=== PATIENT | female | born 1995 | race Caucasian/White ===

== ENCOUNTER 2021-07-03 19:26 | Emergency (ER) | payer OTHER ==
[~2021-07-03] VITALS: Ht 167.6 cm; Wt 46.7 kg
== END 2021-07-04 00:06 | disposition home or self-care (01) ==
LOC: ER 19:26
DX: U07.1 COVID-19 (principal)

== ENCOUNTER 2021-09-09 11:17 | Emergency (ER) | payer OTHER ==
[~2021-09-09] VITALS: Ht 167.6 cm; Wt 49.9 kg
[2021-09-09] MEDS ORDERED: CLONAZEPAM0.5 MG PO (11:30)
[2021-09-09] MEDS ORDERED: OSEL75CA PO (14:39)
== END 2021-09-09 14:44 | disposition home or self-care (01) ==
LOC: ER 11:17
DX: J10.1 Influenza due to other identified influenza virus with other respiratory manifestations (principal); Z20.822 Contact with and (suspected) exposure to COVID-19

== ENCOUNTER 2021-12-31 13:39 | Emergency (ER) | payer OTHER ==
[~2021-12-31] VITALS: Ht 167.6 cm; Wt 51.3 kg
[~2021-12-31 13:39] MED LIST: AMOX-CLAV 875-1 EACH PO; CLONAZEPAM0.5 MG PO; DICLOFENAC POTA50 MG PO; OSEL75CA PO
[2021-12-31] MEDS ORDERED: ONDANSETRON ODT8 MG PO (17:46)
== END 2021-12-31 17:53 | disposition home or self-care (01) ==
LOC: ER 13:39
DX: O21.0 Mild hyperemesis gravidarum (principal); Z3A.00 Weeks of gestation of pregnancy not specified

== ENCOUNTER 2024-04-23 17:57 | Emergency (ER) | payer OTHER ==
[~2024-04-23] VITALS: Ht 167.6 cm; Wt 52.2 kg
[~2024-04-23 17:57] MED LIST changes: +ONDANSETRON ODT8 MG PO
[2024-04-23] MEDS ORDERED: KETOROLAC TROMETHAMINE 30 MG VIAL IU ONE (19:15)
[2024-04-23] MEDS ORDERED: FAMOtidine 10 MG/ML (4ML VIAL) IV PUSH ONE (19:15)
[2024-04-23] MEDS ORDERED: ONDANSETRON HCL 2 MG/ML VIAL IV ONE (19:15)
[2024-04-23 20:09] LABS: HEMATOCRIT 40.8 % (36.0-45.00); MEAN CELL VOLUME 94.3 fL (80.00-100.00); MEAN CORPUSCULAR HEMOGLOBIN 32.4 pg (27.00-32.0); MEAN CORPUSCULAR HGB CONC 34.4 g/dl (32.0-36.0); PLATELET COUNT 191 K/uL (150-450); RED BLOOD COUNT 4.33 M/uL (4.00-6.00); RED CELL DISTRIBUTION WIDTH 12.2 % (11.5-14.5)
[2024-04-23 20:36] LABS: PH,URINE 5.5 (5.0-8.0); URINE APPEARANCE Clear; URINE BILIRRUBIN Negative (NEGATIVE); URINE BLOOD Trace; URINE COLOR Yellow; URINE GLUCOSE Negative (NEGATIVE); URINE KETONE Trace (NEGATIVE); URINE LEUKOCYTE Negative; URINE NITRATE Negative; URINE PROTEIN 30 (NEGATIVE); URINE UROBILINOGEN 0.2 E.U./dl
[2024-04-23 20:40] LABS: URINE BACTERIA 1423.3 uL (0.0-1933); URINE EPITHELIAL CELLS 35.2 uL (0.0-38.8); URINE RBC 13.4 uL (0.0-20.8); URINE WBC 46.8 uL (0.0-23.2)
[2024-04-23 20:44] LABS: ALBUMIN 4.3 gm/dL (3.4-5.0); ALKALINE PHOSPHATASE 44 U/L (50-136); ALT/SGPT 14 U/L (12-78); ANION GAP 8 (10.0-20.0); AST/SGOT 13 U/L (15-37); BLOOD UREA NITROGEN 12 mg/dL (7-18); BUN CREA RATIO 18 (7.0-25.0); CALCIUM 9.2 mg/dL (8.5-10.1); CARBON DIOXIDE 29 mEq/L (21-32); CHLORIDE 106 mmol/L (98-107); CREATININE SERUM 0.65 mg/dL (0.55-1.02); GFR 108.53; GLOBULINA 3.4 G/DL (2.4-3.5); GLUCOSE FASTING 92 mg/dL (65-100); OSMOLALITY SERUM 277 MOSM/KG (275-295); POTASSIUM 3.75 mEq/L (3.5-5.1); SODIUM 139 mmol/L (136-145); TOTAL PROTEIN 7.7 gm/dL (6.4-8.2)
[2024-04-23 20:55] LABS: INR 1.01; PARTIAL THROMBOPLASTIN TIME 30.3 SECONDS (22.0-34.0)
[2024-04-23 20:56] LABS: URINE CAST 0.29 uL (0.0-1.40)
[2024-04-23 21:02] LABS: HCG QUANTITATIVE < 1 mUI/mL (1-3)
[2024-04-23] MEDS ORDERED: NORFLEX100MG PO (21:49)
== END 2024-04-23 21:56 | disposition home or self-care (01) ==
LOC: ER 18:00
PROVIDERS: General Practice
DX: R10.31 Right lower quadrant pain (principal)